=== PATIENT | female | born 1965 | race Caucasian/White ===

== ENCOUNTER 2017-02-03 00:48 | Emergency (ER) | payer BC ==
[2017-02-03 01:40] LABS: HEMOGLOBIN 15.5 gm/dl (12.3-15.3); RED BLOOD COUNT 4.74 M/UL (4.00-5.10); WHITE BLOOD COUNT 8.3 K/UL (4.5-11.0)
[2017-02-03 02:11] LABS: BUN/CREATININE RATIO 23 (0-10)
== END 2017-02-03 04:40 | disposition home or self-care (01) ==
LOC: ER1 00:48
PROVIDERS: Physician Assistant
DX: J40 Bronchitis, not specified as acute or chronic (principal); J06.9 Acute upper respiratory infection, unspecified; F17.210 Nicotine dependence, cigarettes, uncomplicated; Z90.49 Acquired absence of other specified parts of digestive tract; Z90.710 Acquired absence of both cervix and uterus; Z88.6 Allergy status to analgesic agent; Z88.8 Allergy status to other drugs, medicaments and biological substances
CPT/HCPCS: 36415; 71020; 80053; 82550; 82553; 83874; 84484; 85025; 85379; 87040; 93005; 94664; 96374; 99285; J2930

== ENCOUNTER → 2020-09-30 | Outpatient (CLI) | payer MEDICARE, OTHER ==
[~2020-09-30] MED LIST: CONJUGATED ESTROGENS PO; CYCLOBENZAPRINE10 MG PO; IBUPROFEN200 M1 PO; LO-DOSE ASPIRIN81 MG PO; ZOCOR 40 MG TAB40 MG PO
== END ==
LOC: EMI 09-23 09:00
DX: R56.9 Unspecified convulsions (principal)
CPT/HCPCS: 70553; A9577